=== PATIENT | female | born 1975 | race Caucasian/White ===

== ENCOUNTER 2022-07-12 16:11 | Emergency (ER) | payer BC ==
[~2022-07-12] VITALS: Ht 170.2 cm; Wt 102.3 kg
[2022-07-12 17:46] LABS: BASOPHILS # (AUTO) 0.1 X10'3 (0-0.2); EOSINOPHILS # (AUTO) 0.3 X10'3 (0-0.9)
[2022-07-12 17:48] LABS: BASOPHILS % (AUTO) 0.5 % (0-1); EOSINOPHILS % (AUTO) 2.7 % (0-6); HEMATOCRIT 41.5 % (35.0-45.0); HEMOGLOBIN 13.9 g/dl (12.0-16.0); LYMPHOCYTES # (AUTO) 7.1 X10'3 (1.1-4.8); LYMPHOCYTES % (AUTO) 63.9 % (21-51); MEAN CORPUSCULAR HEMOGLOBIN 30.4 PG (27.0-31.0); MEAN CORPUSCULAR HGB CONC 33.5 g/dL (33.0-36.5); MEAN CORPUSCULAR VOLUME 90.7 FL (78-98); MEAN PLATELET VOLUME 7.7 FL (7.4-10.4); MONOCYTES # (AUTO) 0.6 X10'3 (0-0.9); MONOCYTES % (AUTO) 5.8 % (2-12); NEUTROPHILS % (AUTO) 27.1 % (42-75); PLATELET COUNT 213 X10'3 (140-440); RED BLOOD COUNT 4.57 X10'6 (4.20-5.60); RED CELL DISTRIBUTION WIDTH 14.1 % (11.5-14.5)
[2022-07-12] MEDS ORDERED: acetaminophen 325mg tablet PO ONE (18:15)
[2022-07-12] MEDS ORDERED: normal saline 1000ML IV soln IVB ONE (18:15)
[2022-07-12 18:22] LABS: ALANINE AMINOTRANSFERASE 194 U/L (12-78); ALBUMIN 3.1 G/DL (3.4-5.0); ALBUMIN/GLOBULIN RATIO 0.9 (1.1-1.5); ALKALINE PHOSPHATASE 224 IU/L (46-116); ANION GAP 8 (8-16); ASPARTATE AMINO TRANSFERASE 84 U/L (10-37); BILIRUBIN,TOTAL 0.5 MG/DL (0.1-1.0); BLOOD UREA NITROGEN 9 MG/DL (7-18); BUN/CREATININE RATIO 11.3 (6.6-38.0); CALCIUM 8.3 MG/DL (8.5-10.1); CHLORIDE 104 MMOL/L (99-107); GLUCOSE 107 MG/DL (70-104); SODIUM 137 MMOL/L (135-145); TOTAL CARBON DIOXIDE 24.9 MMOL/L (24-32); TOTAL PROTEIN 6.5 G/DL (6.4-8.2); eGFR 78 ML/MIN
[2022-07-12 19:10] LABS: MONOTEST NEGATIVE (Neg)
--- NOTE | 2022-07-12 19:23 | NUR ---
pt up to bathroom without assist
[2022-07-12 19:43] LABS: CLARITY,URINE CLEAR (Clear); COLOR,URINE YELLOW (Yellow); GLUCOSE, URINE NEGATIVE (Neg); KETONES,URINE NEGATIVE (Neg); LEUKOCYTE ESTERASE ,URINE NEGATIVE (Neg); NITRITES, URINE NEGATIVE (Neg); OCCULT BLOOD,URINE NEGATIVE (Neg); PROTEIN,URINE NEGATIVE (Neg); UROBILINOGEN,URINE 0.2 E.U/dL (0.2-1.0)
[2022-07-12 19:50] LABS: UA COLLECTION TYPE CLN CATCH MIDSTREAM
[2022-07-12] MEDS ORDERED: iohexol 350MG/ML 100ml bottle IV ONE (19:51)
--- NOTE | 2022-07-12 19:55 | NUR ---
pt to ct via w/c
--- NOTE | 2022-07-12 22:10 | NUR ---
pt up to bathroom
--- NOTE | 2022-07-12 23:15 | NUR ---
notified ct report back, okayed pt have water, pt given 240 ml water and is at bedside to discuss results with patient.
[2022-07-12 23:35] VITALS: BP 112/70
[2022-07-13 02:39] LABS: PLATELET ESTIMATE NORMAL; TOTAL CELLS COUNTED 100
== END 2022-07-12 23:40 | disposition home or self-care (01) ==
LOC: ER 16:12
DX: R50.9 Fever, unspecified (principal); Z20.822 Contact with and (suspected) exposure to COVID-19; R74.01 Elevation of levels of liver transaminase levels; J45.909 Unspecified asthma, uncomplicated
CPT/HCPCS: 36415; 71045; 71260; 74177; 80053; 81003; 83605; 84145; 85007; 85025; 86308; 87040; 87077; 87811; 96360; 99285; J3490; J7030; Q9967

== ENCOUNTER 2023-10-23 20:58 | Emergency (ER) | payer BC ==
[~2023-10-23] VITALS: Ht 170.2 cm; Wt 115.9 kg
[2023-10-23 21:55] LABS: BASOPHILS # (AUTO) 0.1 X10'3 (0-0.2); BASOPHILS % (AUTO) 0.4 % (0-1); EOSINOPHILS # (AUTO) 0.2 X10'3 (0-0.9); EOSINOPHILS % (AUTO) 1.6 % (0-6); HEMOGLOBIN 14.2 g/dl (12.0-16.0); LYMPHOCYTES # (AUTO) 1.3 X10'3 (1.1-4.8); LYMPHOCYTES % (AUTO) 8.7 % (21-51); MEAN CORPUSCULAR HEMOGLOBIN 30.7 PG (27.0-31.0); MEAN CORPUSCULAR HGB CONC 33.1 g/dL (33.0-36.5); MEAN CORPUSCULAR VOLUME 92.7 FL (78-98); MEAN PLATELET VOLUME 8.5 FL (7.4-10.4); MONOCYTES % (AUTO) 6.4 % (2-12); NEUTROPHILS # (AUTO) 12.7 X10'3 (1.8-7.7); NEUTROPHILS % (AUTO) 82.9 % (42-75); PLATELET COUNT 294 X10'3 (140-440); RED BLOOD COUNT 4.64 X10'6 (4.20-5.60); RED CELL DISTRIBUTION WIDTH 14.1 % (11.5-14.5); WHITE BLOOD COUNT 15.3 X10'3 (4.5-11.0)
[2023-10-23 22:11] LABS: ALANINE AMINOTRANSFERASE 35 U/L (12-78); ALBUMIN 3.4 G/DL (3.4-5.0); ALKALINE PHOSPHATASE 91 IU/L (46-116); ANION GAP 8 (8-16); ASPARTATE AMINO TRANSFERASE 30 U/L (10-37); BILIRUBIN,TOTAL 0.4 MG/DL (0.1-1.0); BLOOD UREA NITROGEN 6 MG/DL (7-18); BUN/CREATININE RATIO 7.4 (10.0-20.0); CHLORIDE 100 MMOL/L (99-107); CREATININE 0.81 MG/DL (0.40-0.90); GLUCOSE 135 MG/DL (70-104); POTASSIUM 3.9 MMOL/L (3.5-5.1); SODIUM 136 MMOL/L (135-145); TOTAL CARBON DIOXIDE 27.6 MMOL/L (24-32); TOTAL PROTEIN 6.8 G/DL (6.4-8.2); eCRCL 84 ML/MIN; eGFR 76 ML/MIN
[2023-10-23 22:19] LABS: PRO BRAIN NATRIURETIC PEPTIDE 65 PG/ML (0-125)
[2023-10-24 00:59] VITALS: BP 114/76; PULSE 99; RESP 16; TEMP 98.2; O2SAT 94
== END 2023-10-24 01:43 | disposition left against medical advice (07) ==
LOC: ER 20:58
DX: R07.89 Other chest pain (principal); Z20.822 Contact with and (suspected) exposure to COVID-19; Z53.21 Procedure and treatment not carried out due to patient leaving prior to being seen by health care provider
CPT/HCPCS: 36415; 71045; 80053; 83880; 84484; 85025; 87502; 87503; 87811; 93005; 99281; 99285

== ENCOUNTER 2023-10-26 11:33 | Emergency (ER) | payer BC ==
[~2023-10-26] VITALS: Ht 170.2 cm; Wt 113.3 kg
[2023-10-26 11:53] VITALS: BP 122/74; PULSE 87; RESP 20; TEMP 98; O2SAT 93
[2023-10-26] MEDS ORDERED: BENZ-38 PO (12:16)
[2023-10-26] MEDS ORDERED: AZIT250T82 PO (12:16)
[2023-10-26] MEDS ORDERED: ROBDML PO (12:16)
[2023-10-26] MEDS ORDERED: CefTRIAXone 1000mg IM Kit (w/lidocaine diluent) IM STA (12:41)
== END 2023-10-26 17:39 | disposition home or self-care (01) ==
LOC: ER 11:33
DX: J18.9 Pneumonia, unspecified organism (principal); J45.909 Unspecified asthma, uncomplicated; Z79.899 Other long term (current) drug therapy
CPT/HCPCS: 96372; 99283; J0696